=== PATIENT | female | born 1995 | race Caucasian/White ===

== ENCOUNTER 2017-09-04 01:54 | Emergency (ER) | payer BC ==
[~2017-09-04] VITALS: Ht 154.9 cm; Wt 41.1 kg
[2017-09-04 01:55] VITALS: BP 113/73
== END 2017-09-04 03:29 | disposition home or self-care (01) ==
LOC: ED 03:23
DX: J30.2 Other seasonal allergic rhinitis (principal); J45.909 Unspecified asthma, uncomplicated
CPT/HCPCS: 71010; 99283; J7512